=== PATIENT | male | born 1990 | race Caucasian/White ===

== ENCOUNTER 2020-12-26 20:36 | Emergency (ER) | payer SELFPAY ==
[~2020-12-26] VITALS: Ht 172.7 cm; Wt 86.4 kg
[2020-12-26 20:47] VITALS: TEMP 98.4
[2020-12-26 21:12] LABS: BASO % 0.3 % (0.0-2.0); EOS # 0.1 (0.0-0.7); EOS % 1.7 % (0-4.0); GRAN # 4.2 (1.4-6.5); GRAN % 56.5 % (42.2-75.2); HEMATOCRIT 44.7 % (42.0-52.0); HEMOGLOBIN 14.7 g/dl (13.5-18.0); LYMPH # 2.4 (1.2-3.4); LYMPH % 31.9 % (20.0-51.0); MEAN CELL VOLUME 88 fl (80.0-100.0); MEAN CORPUSCULAR HEMOGLOBIN 29 pg (27.0-31.0); MEAN CORPUSCULAR HGB CONC 33 g/dl (33.0-37.0); MONO # 0.7 (0.1-0.6); MONO % 9.3 % (1.7-9.3); PLATELET COUNT 222 K/mm3 (130-400); RED BLOOD COUNT 5.11 M/mm3 (4.20-5.60); REDCELL DISTRIBUTION WIDTH-CV 12.9 % (11.5-14.5)
[2020-12-26 21:22] LABS: ALBUMIN 4.4 gm/dL (3.5-5.0); BILIRUBIN,TOTAL 0.4 mg/dL (0.0-1.0); CALCIUM 9.3 mg/dL (8.4-10.2); CREATININE, serum 0.75 (0.66-1.25); POTASSIUM 3.9 mmol/L (3.4-5.0); TOTAL PROTEIN 7.6 gm/dL (6.4-8.2)
[2020-12-26] MEDS ORDERED: PROTONIX 40MG T40 MG PO (23:32)
[2020-12-27] MEDS ORDERED: NORCO 325 MG-51 TAB PO (00:07)
[2020-12-27 00:09] VITALS: BP 132/87; PULSE 68
[2020-12-28] MEDS ORDERED: ZOFRAN ODT4 MG PO (01:01)
[2020-12-28] MEDS ORDERED: NORCO 325 MG-51 TAB PO (01:01)
== END 2020-12-27 00:09 | disposition home or self-care (01) ==
LOC: COL.ER 20:36
PROVIDERS: Physician Assistant
DX: K52.9 Noninfective gastroenteritis and colitis, unspecified (principal)
CPT/HCPCS: C9113; J1170; J1885; J2405; J7030; Q9967

== ENCOUNTER 2020-12-27 21:23 | Emergency (ER) | payer SELFPAY ==
[~2020-12-27] VITALS: Ht 172.7 cm; Wt 72.7 kg
[~2020-12-27 21:23] MED LIST: NORCO 325 MG-51 TAB PO; PROTONIX 40MG T40 MG PO
[2020-12-27 23:19] LABS: BASO % 0.3 % (0.0-2.0); EOS # 0.2 (0.0-0.7); EOS % 2.2 % (0-4.0); GRAN # 4.2 (1.4-6.5); GRAN % 56.6 % (42.2-75.2); HEMATOCRIT 44.9 % (42.0-52.0); HEMOGLOBIN 15.1 g/dl (13.5-18.0); LYMPH # 2.3 (1.2-3.4); LYMPH % 30.7 % (20.0-51.0); MEAN CELL VOLUME 86 fl (80.0-100.0); MEAN CORPUSCULAR HEMOGLOBIN 29 pg (27.0-31.0); MEAN CORPUSCULAR HGB CONC 34 g/dl (33.0-37.0); MEAN PLATELET VOLUME 8.7 fl (7.4-10.4); MONO # 0.7 (0.1-0.6); MONO % 9.9 % (1.7-9.3); PLATELET COUNT 210 K/mm3 (130-400); RED BLOOD COUNT 5.24 M/mm3 (4.20-5.60); REDCELL DISTRIBUTION WIDTH-CV 12.7 % (11.5-14.5)
[2020-12-27 23:41] LABS: ALBUMIN 4.6 gm/dL (3.5-5.0); BILIRUBIN,TOTAL 0.4 mg/dL (0.0-1.0); CALCIUM 9.3 mg/dL (8.4-10.2); CREATININE, serum 0.76 (0.66-1.25)
[2020-12-28] MEDS ORDERED: NORCO 325 MG-51 TAB PO (01:01)
[2020-12-28] MEDS ORDERED: ZOFRAN ODT4 MG PO (01:01)
[2020-12-28 01:20] VITALS: BP 124/78; PULSE 61; TEMP 98.4
== END 2020-12-28 01:20 | disposition home or self-care (01) ==
LOC: COL.ER 21:23
PROVIDERS: Personal Emergency Response Attendant
DX: K52.9 Noninfective gastroenteritis and colitis, unspecified (principal)
CPT/HCPCS: C9113; J2270; J2405; J7030

== ENCOUNTER 2022-03-09 16:42 | Emergency (ER) | payer SELFPAY ==
[~2022-03-09] VITALS: Ht 172.7 cm; Wt 79.1 kg
[~2022-03-09 16:42] MED LIST changes: +ZOFRAN ODT4 MG PO
[2022-03-09 16:49] VITALS: TEMP 98.1
[2022-03-09 18:37] VITALS: BP 133/76; PULSE 59
== END 2022-03-09 18:39 | disposition home or self-care (01) ==
LOC: COL.ER 16:42
DX: T16.1XXA Foreign body in right ear, initial encounter (principal); Z28.310 Unvaccinated for COVID-19; W45.8XXA Other foreign body or object entering through skin, initial encounter

== ENCOUNTER 2022-03-11 10:56 | Emergency (ER) | payer SELFPAY ==
[~2022-03-11] VITALS: Ht 170.2 cm; Wt 79.1 kg
[2022-03-11 11:00] VITALS: TEMP 98.4
[2022-03-11 13:00] VITALS: BP 135/94; PULSE 70
== END 2022-03-11 13:00 | disposition home or self-care (01) ==
LOC: COL.ER 10:56
DX: T16.1XXA Foreign body in right ear, initial encounter (principal); Z28.310 Unvaccinated for COVID-19